=== PATIENT | female | born 1975 | race African-American/Black ===

== ENCOUNTER 2020-07-12 09:17 | Emergency (ER) | payer OTHER, SELFPAY ==
--- OUTSIDE RECORDS SUMMARY | 2020-07-12 09:20 | XMS REPORT | Continuity of Care Document ---
:1975 Author Organization [facility] t Address [address] [place] [address] Care Team Providers Name Role Phone Radiology Attending Clinician Unavailable Doctor Unassigned, Name Attending Clinician Unavailable Sanam Chisholm Attending Clinician Chanelle Crane Attending Clinician Problems This patient has no known problems. Allergies, Adverse Reactions, Alerts This patient has no known allergies or adverse reactions. Medications This patient has no known medications. Procedures This patient has no known procedures. Encounters Start End Encounter Admission Attending Care Care Encounter Source Date/Time Date/Time Type Type Clinicians Facility Department ID 2020-02-24 2020-02-24 [facility] Radiology [facility] [id number] 10:45:00 23:59:00 Encounter [place] [id number] [place] [id number] [place] [id number] 2020-02-24 2020-02-24 Orders Doctor SCOTT [id number] 00:00:00 00:00:00 Only [place]assigned, [place] [id number] [facility] [place] [id number] 2020-01-31 2020-01-31 Emergency [facility] [id number] 18:21:40 21:20:00 Rena Cox [id number] [place] [id number] [place] [id number] 2019-07-16 2019-07-16 Emergency Johnny Moreno [facility] [id number]. [id number] 15:51:43 16:44:00 Johnny Moreno [place] [id number] [place] [id number] [place] [id number] Results This patient has no known results.
[2020-07-12] MEDS ORDERED: KETOROLAC 30 MG/ML INJ ONE (10:30)
--- NOTE | 2020-07-12 11:41 | RAD REPORT ---
EXAM DESCRIPTION: RAD - C Spine Ap/Lat - 07/12/2020 11:13 am CLINICAL HISTORY: PAIN COMPARISON: No comparisons FINDINGS: Cervical bodies are normal in height and alignment.No fracture or acute bony process seen. Large posterior osteophytes are present at C4-5, C5-6 and C6-7. No prevertebral soft tissue thickening or other suspicious soft tissue finding. IMPRESSION: Moderate lower cervical degenerative changes.
--- NOTE | 2020-07-12 11:45 | EDPHYS ---
Physician Documentation [facility] Name: Bernadette Garcia Age: 44 yrs Sex: Female : 1975 Arrival Date: 07/12/2020 Time: 09:21 Bed 6 Private MD: ED Physician Pj Paige HPI: 07/12 09:50 This 44 yrs old Black Female presents to ER via Wheelchair with complaints of Back cp Pain, Neck Problem, Arm Pain. 09:50 The patient or guardian complains of pain, that is acute. The symptoms are located on cp the back and left side of neck. Onset: The symptoms/episode began/occurred 2 week(s) ago. Context: The neck injury/problem resulted from from unknown cause. 09:50 The pain radiates to the left arm. Associated signs and symptoms: Pertinent positives: cp weakness, of the left arm, Pertinent negatives: headache, numbness, tingling. 09:53 The patient presents with pain that is chronic, with no known mechanism of injury. The cp symptoms are located in the low back. Onset: The symptoms/episode began/occurred years ago. The pain radiates to the right leg and left leg. Associated signs and symptoms: Pertinent negatives: abdominal pain, constipation, fever, incontinence, numbness, urinary retention. Historical: - Allergies: 09:30 Codeine (Vomiting); hb - PMHx: 09:30 Diabetes - NIDDM; Hypertension; hb - Immunization history:: Adult Immunizations up to date. - Social history:: Smoking status: Patient denies any tobacco usage or history of. ROS: 09:55 Neck: Positive for pain with movement, pain at rest, Negative for injury or acute cp deformity. 09:55 Cardiovascular: Negative for chest pain, palpitations. 09:55 Respiratory: Negative for cough, shortness of breath, wheezing. cp 09:55 Abdomen/GI: Negative for abdominal pain, nausea, vomiting, and diarrhea. 09:55 MS/extremity: Positive for pain, of the left arm, Negative for decreased range of motion, paresthesias. 09:55 Back: Positive for pain at rest, pain with movement, of the low back. cp 09:55 Neuro: Positive for weakness, of the left arm, Negative for altered mental status, cp numbness, tingling. 09:55 Skin: Negative for rash. cp 09:55 All other systems are negative. Exam: 10:10 Head/Face: Normocephalic, atraumatic. cp 10:10 Constitutional: The patient appears in no acute distress, alert, awake, non-diaphoretic, non-toxic, well developed, well nourished, obese. 10:10 Eyes: Periorbital structures: appear normal, Conjunctiva: normal, no exudate, no injection, Sclera: no appreciated abnormality, Lids and lashes: appear normal, bilaterally. 10:10 ENT: External ear(s): are unremarkable, Nose: is normal, Posterior pharynx: Airway: no evidence of obstruction, patent. 10:10 Neck: External neck: swelling, is not appreciated, tenderness, that is moderate, of the left mid cervical area and left trapezius, C-spine: vertebral tenderness, is not appreciated, crepitus, is not appreciated, ROM/movement: pain, that is mild, with any movement, limited range of motion, is not appreciated. 10:10 Chest/axilla: Inspection: normal, Palpation: is normal, no crepitus, no tenderness. 10:10 Respiratory: the patient does not display signs of respiratory distress, Respirations: normal, no use of accessory muscles, no retractions, labored breathing, is not present, Breath sounds: are clear throughout. 10:10 Abdomen/GI: Exam negative for discomfort, distension, Inspection: abdomen appears normal. 10:10 Back: pain, that is mild, of the lumbar area, ROM is painful, with all movement. 10:10 Neuro: Orientation: to person, place \T\ time. Mentation: is normal, Motor: moves all fours, strength is normal, Sensation: no obvious gross deficits. Vital Signs: 09:27 BP 154 / 104; Pulse 106; Resp 16; Temp 98.2(O); Pulse Ox 100% on R/A; Weight 127.01 kg; hb Height 5 ft. 6 in. (167.64 cm); Pain 10/10; 11:43 BP 142 / 97; Pulse 89; Resp 18; Pulse Ox 100% on R/A; ph 09:27 Body Mass Index 45.19 (127.01 kg, 167.64 cm) hb MDM: 09:44 Patient medically screened. cp 10:00 Differential diagnosis: Cervical Disc Herniation Cervical Raiculopathy chronic back cp pain, ruptured disc, cervical strain, Degenerative Disc Disease. 11:29 ED course: no report generated after inquiry on [employer] prescription monitor website. cp 11:44 Data reviewed: vital signs, nurses notes, radiologic studies, plain films. cp 11:44 Counseling: I had a detailed discussion with the patient and/or guardian regarding: the cp historical points, exam findings, and any diagnostic results supporting the discharge/admit diagnosis, radiology results, the need for outpatient follow up, a family practitioner, to return to the emergency department if symptoms worsen or persist or if there are any questions or concerns that arise at home. Response to treatment: the patient's symptoms have mildly improved after treatment, and as a result, I will discharge patient. 07/12 09:49 Order name: XRAY C Spine Ap/lat; Complete Time: 11:43 cp Administered Medications: 10:26 Drug: TORadol 30 mg Route: IM; Site: left deltoid; ph 11:43 Follow up: Response: No adverse reaction ph Disposition: 12:05 Chart complete. cp 13:55 Co-signature as Attending Physician, Pj Paige MD I agree with the assessment and kdr plan of care. Disposition: 07/12/20 11:44 Discharged to Home. Impression: Strain of muscle, fascia and tendon at neck level, Low back pain - chronic. - Condition is Stable. - Discharge Instructions: Back Pain, Adult, Muscle Strain, Neck Exercises, Back Exercises. - Prescriptions for Cyclobenzaprine 10 mg Oral Tablet - take 1 tablet by ORAL route every 8 hours As needed; 30 tablet. Tramadol 50 mg Oral Tablet - take 1 tablet by ORAL route every 8 hours as needed; 20 tablet. Medrol (Raimundo) 4 mg Oral Tablets, Dose Pack - take 1 tablet by ORAL route as directed - follow package instructions; 1 packet. - Medication Reconciliation Form, Thank You Letter, Antibiotic Education, Prescription Opioid Use form. - Follow up: Private Physician; When: 2 - 3 days; Reason: Recheck today's complaints. - Problem is new. - Symptoms have improved. Signatures: Dispatcher [employer] EDMS Pj Paige MD MD [facility] Monse Simmons RN RN ph Clarence Umanzor PA PA cp Glendy King RN RN Corrections: (The following items were deleted from the chart) 11:59 11:44 07/12/2020 11:44 Discharged to Home. Impression: Strain of muscle, fascia and ph tendon at neck level; Low back pain - chronic. Condition is Stable. Forms are Medication Reconciliation Form, Thank You Letter, Antibiotic Education, Prescription Opioid Use. Follow up: Private Physician; When: 2 - 3 days; Reason: Recheck today's complaints. Problem is new. Symptoms have improved. cp
--- NOTE | 2020-07-12 11:45 | ER ---
Nurse's Notes [facility] Name: Bernadette Garcia Age: 44 yrs Sex: Female : 1975 Arrival Date: 07/12/2020 Time: 09:21 Bed 6 Private MD: Diagnosis: Strain of muscle, fascia and tendon at neck level;Low back pain-chronic Presentation: 07/12 09:27 Chief complaint: Left sided neck pain that radiates to left arm x 2 weeks, low back hb pain that radiates to bilateral legs x 2-3 days. Pt stated "I have an implanted nerve stimulator, but I don't think it is working.". Coronavirus screen: At this time, the client does not indicate any symptoms associated with coronavirus-19. Ebola Screen: No symptoms or risks identified at this time. Initial Sepsis Screen: Does the patient meet any 2 criteria? No. Patient's initial sepsis screen is negative. Does the patient have a suspected source of infection? No. Patient's initial sepsis screen is negative. Risk Assessment: Do you want to hurt yourself or someone else? Patient reports no desire to harm self or others. Onset of symptoms was June 2020. 09:27 Method Of Arrival: Wheelchair hb 09:27 Acuity: ODALIS 3 hb Historical: - Allergies: 09:30 Codeine (Vomiting); hb - PMHx: 09:30 Diabetes - NIDDM; Hypertension; hb - Immunization history:: Adult Immunizations up to date. - Social history:: Smoking status: Patient denies any tobacco usage or history of. Screenin:32 Abuse screen: Denies injuries from another. Abuse screen: Denies threats or abuse. ph Nutritional screening: No deficits noted. Tuberculosis screening: No symptoms or risk factors identified. Fall Risk None identified. Assessment: 09:33 General: Appears in no apparent distress. comfortable, well groomed, Behavior is calm, ph cooperative, appropriate for age, Denies fever, feeling ill. Pain: Complains of pain in left posterior aspect of neck Pain radiates to left arm Quality of pain is described as shooting, throbbing, Pain began 2 weeks ago. Pain: Complains of pain in lumbar area Pain radiates to right leg and left leg Pain began years ago. Neuro: Level of Consciousness is awake, alert, obeys commands, Oriented to person, place, time, situation, Reports paresthesias in left arm Denies weakness blurred vision dizziness, headache. Cardiovascular: Denies chest pain, diaphoresis, fatigue, lightheadedness, nausea, palpitations, shortness of breath, Capillary refill < 3 seconds in bilateral fingers Patient's skin is warm and dry. Respiratory: Airway is patent Respiratory effort is even, unlabored, Respiratory pattern is regular, symmetrical, Denies shortness of breath. GI: No signs and/or symptoms were reported involving the gastrointestinal system. Patient currently denies nausea, vomiting. Derm: Skin is intact, is healthy with good turgor, Skin is pink, warm \\T\\ dry. Musculoskeletal: Circulation, motion, and sensation intact. Range of motion: intact in all extremities. 11:02 Reassessment: Patient appears in no apparent distress at this time. Patient and/or ph family updated on plan of care and expected duration. Pain level reassessed. Patient is alert, oriented x 3, equal unlabored respirations, skin warm/dry/pink. Vital Signs: 09:27 BP 154 / 104; Pulse 106; Resp 16; Temp 98.2(O); Pulse Ox 100% on R/A; Weight 127.01 kg; hb Height 5 ft. 6 in. (167.64 cm); Pain 10/10; 11:43 BP 142 / 97; Pulse 89; Resp 18; Pulse Ox 100% on R/A; ph 09:27 Body Mass Index 45.19 (127.01 kg, 167.64 cm) hb ED Course: 09:21 Patient arrived in ED. mr 09:29 Triage completed. hb 09:30 Arm band placed on. hb 09:32 Monse Simmons, RN is Primary Nurse. ph 09:33 Patient has correct armband on for positive identification. Bed in low position. Call ph light in reach. Side rails up X 1. Pulse ox on. NIBP on. Door closed. Noise minimized. Warm blanket given. 09:42 Clarence Umanzor PA is PHCP. cp 09:42 Pj Paige MD is Attending Physician. cp 11:09 XRAY C Spine Ap/lat In Process Unspecified. EDMS 11:58 No provider procedures requiring assistance completed. Patient did not have IV access ph during this emergency room visit. Administered Medications: 10:26 Drug: TORadol 30 mg Route: IM; Site: left deltoid; ph 11:43 Follow up: Response: No adverse reaction ph Outcome: 11:44 Discharge ordered by . cp 11:58 Discharged to home via wheelchair. ph 11:58 Condition: good 11:58 Discharge instructions given to patient, Instructed on discharge instructions, follow up and referral plans. medication usage, Demonstrated understanding of instructions, follow-up care, medications, Prescriptions given X 3. 11:59 Patient left the ED. ph Signatures: Dispatcher [employer] Karissa Hall Patricia, RN RN ph Clarence Umanzor, Glendy Mason cp, RN RN hb
[2020-07-16 23:28] VITALS: TEMP 98.2; O2SAT 100
[2020-07-16 23:29] VITALS: BP 142/97
== END 2020-07-12 11:59 | disposition home or self-care (01) ==
LOC: ER 09:17
DX: S16.1XXA Strain of muscle, fascia and tendon at neck level, initial encounter (principal); M54.5 Low back pain; I10 Essential (primary) hypertension; Z88.5 Allergy status to narcotic agent
CPT/HCPCS: 72040; 96372; 99284

== ENCOUNTER 2023-03-26 05:29 | Observation (INO) | payer OTHER ==
[2023-03-22 10:23] LABS: Absolute Lymphocytes (CBC) 2.6 K/uL (0.7-4.9); Hematocrit 40.8 % (36.0-45.0); Lymphocytes % 23.1 % (15.3-44.8); MCV 87.4 fL (80-100); MPV 7.9 fL (7.6-11.3); RBC Red Blood Cell Count 4.67 M/uL (3.86-4.86)
[2023-03-22 10:36] LABS: Potassium 3.8 mEq/L (3.5-5.1)
[2023-03-26] MEDS ORDERED: NA CHLORIDE 0.9% 1,000 ML ONE ×2 (06:01→08:29)
[2023-03-26] MEDS ORDERED: CEFAZOLIN SODIUM 2 GM/VIAL ONE (06:01)
[2023-03-26] MEDS ORDERED: DEPO-MEDROL 40 MG/ML IM ONE (06:28)
[2023-03-26] MEDS ORDERED: VANCOMYCIN 1 GM/VIAL ONE (06:28)
[2023-03-26] MEDS ORDERED: THROMBIN 5000 UNITS/VIAL TOP ONE (06:28)
[2023-03-26] MEDS ORDERED: BUPIVACAINE 0.25% PF 30 ML VIAL ONE (06:28)
[2023-03-26] MEDS ORDERED: SUCCINYLCHOLINE 20 MG/ML (10 ML) IV ONE (06:31)
[2023-03-26] MEDS ORDERED: propofoL 200 MG/20 ML VIAL IV ONE ×9 (06:46→09:45)
[2023-03-26] MEDS ORDERED: MIDAZOLAM HCL 2 MG/2 ML INJ ONE (06:46)
[2023-03-26] MEDS ORDERED: ROCURONIUM 50 MG/5 ML VIAL IV ONE (06:46)
[2023-03-26] MEDS ORDERED: LIDOCAINE 2% MPF 5 ML VIAL ONE (06:46)
[2023-03-26] MEDS ORDERED: FENTANYL CITR 250 MCG/5 ML ONE (06:46)
[2023-03-26] MEDS ORDERED: dexAMETHasone 10 MG/ML VIAL ONE (06:46)
[2023-03-26] MEDS ORDERED: ONDANSETRON 4 MG/2 ML VIAL ONE (06:53)
[2023-03-26] MEDS ORDERED: Mastisol Adhesive Liq ONE (07:45)
[2023-03-26] MEDS ORDERED: Phenylephrine HCl 10 MG/ML 1 ML VIAL ONE (08:11)
[2023-03-26] MEDS ORDERED: FENTANYL CITR 100 MCG/2 ML ONE (08:30)
[2023-03-26] MEDS: HYDROMORPHONE HCL 1 MG/ML INJ ONE ×4 (11:05→11:46)
[2023-03-26] MEDS ORDERED: CYCLOBENZAPRINE 10 MG TAB PO PRN ×2 (11:20→13:24)
[2023-03-26] MEDS ORDERED: HYDROCODONE/APAP 10/325 TAB PO PRN ×2 (11:21)
[2023-03-26] MEDS ORDERED: MORPHINE 2 MG/ML SYR IV PRN (11:22)
[2023-03-26] MEDS: NA CHLORIDE 0.9% 1,000 ML IV SCH ×2 (12:00→22:00)
--- NOTE | 2023-03-26 12:15 | RAD REPORT ---
EXAM DESCRIPTION: RAD - Fluoroscopy <1 Hour - 03/26/2023 12:09 pm CLINICAL HISTORY: CSPINE DISCECTOMY, C4-C5, C5-C6, C6-C7 COMPARISON: No comparisons FINDINGS: Fluoroscopy time: 0.1 minutes.
--- OUTSIDE RECORDS SUMMARY | 2023-03-26 12:15 | XMS REPORT | Continuity of Care Document ---
:1975 Author Organization [facility] t Address [address] [place] [address] [place] [id number] Care Team Providers Name Role Phone Jarek Tila Hill Primary Care Physician AVI MASON Attending Clinician Unavailable KENNEY PEDRO Attending Clinician Unavailable Avi Mason MD Attending Clinician Doctor Unassigned, [place] Attending Clinician Unavailable Pob, [facility] Main Attending Clinician Unavailable RADIOLOGY Attending Clinician Unavailable Radiology Attending Clinician Unavailable RONALD MARSH Attending Clinician Unavailable KENDRA URIAS Attending Clinician Unavailable Kendra Denise Attending Clinician PATRICIA SULTANA Attending Clinician Unavailable Patricia Sultana DO Attending Clinician Clemente Mathur Attending Clinician CLEMENTE MATHUR Attending Clinician Unavailable Rena Chisholm Attending Clinician RENA SNYDER Attending Clinician Unavailable Johnny Crane Attending Clinician AVI MASON Admitting Clinician Unavailable Avi Mason MD Admitting Clinician KIM ESPITIA II Admitting Clinician Unavailable KENDRA URIAS Admitting Clinician Unavailable TILA DELGADO Admitting Clinician Unavailable RENA SNYDER Admitting Clinician Unavailable Payers Payer Name Policy Type Policy Number Effective Date Expiration Date Abisai RODRIGUEZ PLS [id number] 2022 HMO 00:00:00 [facility] [id number] 2021 PLUS 00:00:00 FORMERLY [facility] 3D [employer] [id number] 2020spring 00:00:00 MED[place] [id number] 2021 00:00:00 MEDICAID SSI PENDING 2020 PENDING 00:00:00 Problems Condition Condition Condition Status Onset Resolution Last Treating Co mments Source Name Details Category Date Date Treatment Clinician Date MRI MRI Diagnosis Active 2021-06-15 Mem oria CERVICAL CERVICAL 7-20 04:40:00 l SPINE WO SPINE WO 00:00: Toño flores CONTRAST CONTRAST 00 Active 06/07/2021 [facility] M54.12 / M54.12 / Diagnosis Active 2021-06-13 Memoria SPINE CORD SPINE CORD 7-20 16:30:00 l STIMULATOR STIMULATOR 00:00: He rmann IMPLANT IMPLANT 00 Active 06/07/2021 [facility] Chest pain Chest pain Disease Active U nivers 6-20 ity of 00:00: [place] 00 Medical Branch Morbid Morbid Disease Active Univers obesity obesity 6-20 [place] of with body [place] body [place] mass index mass index 00 Me dical of of Branch 40.0-49.9 40.0-49.9 Type 2 Type 2 Disease Active Univers diabetes diabetes 6-20 ity of mellitus mellitus 00:00: [place] without without 00 Medical complicati complicati Br anch on on Essential Essential Disease Active Uni vers hypertensi hypertensi 6-20 it y of on on 00:00: [place] 00 Medical Branch Morbid Morbid Disease Active Univers obesity obesity 6-20 [place]y of with body with body 00:[place] mass index mass index 00 Me dical of of Branch 40.0-49.9 40.0-49.9 Allergies, Adverse Reactions, Alerts Allergy Allergy Status Severity Reaction(s) Onset Inactive Treating Comm ents Source Name Type Date Date Clinician Codeine Propensi Active Hives 2011-11 Univers Hcl ty to 0-05 ity of adverse 00:00: [place] reaction 00 Medical s Branch CODEINE DRUG Active Hives 2011-11 Univers HCL INGREDI 0-05 ity of 00:00: [place] 00 Medical Branch Social History Social Habit Start Date Stop Date Quantity Comments Source Alcohol intake 2023-01-29 2023-01-29 Current University 00:00:00 00:00:00 non-drinker of [facility] alcohol [place] (finding) Exposure to 2023-01-12 2023-01-22 Not sure [facility] SARS-CoV-2 00:00:00 11:00:00 [facility] (event) [place] Sex Assigned At [birth year] [facility] 00:00:00 00:00:00 Smoking Status Start Date Stop Date Source Tobacco smoking consumption [facility] ealth unknown Never smoked tobacco [facility] Medications Ordered Filled Start Stop Current Ordering Indication Dosage Frequency Signature Comments Components Source Medication Medication Date Date Medication? Clinician (SIG) Name Name NaCl 23.4% Yes PRN, Univers HYPERTONIC 01-29 Starting ity o f injection 13:31: on Mon [place] 00 01/29/23 at [facility] 08, Branch Until Discontinu ed, STAT, Intra-op triamcinolo 2022- No PRN, Unive rs ne 01-29 Starting ity of acetonide 13:31: 13:37 on [facility] (KENALOG) 00 :31 01/29/23 at [facility] injection 08, Branch Until Sun01/29/23 at 0837, Routine, Intra-op NaCl 23.4% 2022- No PRN, Univer s HYPERTONIC 01-29 Starting ity of injection 13:31: 16:45 on [facility] 00 :36 01/29/23 at [facility] 0831, Branch Until Sun01/29/23 at 1145, STAT, Intra-op bupivacaine Yes PRN, Univer s -epinephrin 01-29 Starting ity of e-pf 13:29: on Sun [place] (SENSORCAIN 00 01/29/23 at [place] 0829, Branch W/EPINEPHRI Until NE) 0.5 Discontinu %-1:200,000 ed, injection Routine, Intra-op iohexoL 0 Yes PRN, Univers (OMNIPAQUE 13 Starting ity o f 300-50 mL)) 13:29: [place] 00 01/29/23 at [facility] 0829, Branch Until Discontinu ed, Routine, Intra-op lidocaine Yes PRN, Univers 1% 01-29 Starting ity of (XYLOCAINE) 13:29: [place] 10 mg/mL (1 00 01/29/23 at [place] d[place] %) 828, Branch injection Until Discontinu ed, Routine, Intra-op triamcinolo Yes PRN, Univer s ne 01-29 Starting ity of acetonide 13:29: on [facility] (KENALOG) 00 01/29/23 at [facility] injection 0829, Branch Until Discontinu ed, Routine, Intra-op bupivacaine 2022- No PRN, Unive rs -epinephrin 01-29 Starting ity of e-pf 13:29: 16:45 on [facility] (SENSORCAIN 00 :36 01/29/23 at [place] 0829, Branch W/EPINEPHRI Until [facility]) 0.5 01/29/23 at %-1:200,000 1145, injection Routine, Intra-op iohexoL 2022- No PRN, Univers (OMNIPAQUE 01-29 Starting ity of 300-50 mL)) 13:29: 16:45 on Sun [place] injection 00 :36 01/29/23 at [facility] 0829, Branch Until Sun01/29/23 at 1145, Routine, Intra-op lidocaine 2022- No PRN, Univers 1% 01-29 Starting ity of (XYLOCAINE) 13:29: 16:45 on [facility] [place] 10 mg/mL (1 00 :36 01/29/23 at [place] %) 08, Branch injection Until Sun01/29/23 at 1145, Routine, Intra-op triamcinolo 2022- No PRN, Unive rs ne 01-29 Starting ity of acetonide 13:29: 16:45 on [facility] (KENALOG) 00 :36 01/29/23 at [facility] injection 0829, Branch Until Sun01/29/23 at 1145, Routine, Intra-op lactated 2023-0 2023- No 1000mL at 42 Unive rs ringers IV 3-13 03-13 mL/hr, ity of infusion 12:15: 12:08 1,000 mL, [place] 1,000 mL 00 :00 IV Medical Infusion, Branch ONCE, 1 dose, On Sun01/29/23 at 0715, Routine, DSU Pre-op lactated 3-0 202- No 1000mL at 42 Unive rs ringers IV 3-13 03-13 mL/hr, ity of infusion 12:15: 12:08 1,000 mL, [place] 1,000 mL 00 :00 IV Medical Infusion, Branch ONCE, 1 dose, On Sun01/29/23 at 0715, Routine, DSU Pre-op LISINOPRIL 2023-0 Yes 40mg Take 40 mg U nivers ORAL 3-13 by mouth ity of 09:45: daily. Pt [place] [address] states her Medical Lisinopril Branch is bumped up to 40 mg instead of 20 mg per MD, per pt. amLODIPine 3-0 Yes 5mg Take 1 Unive rs 5 mg tablet 3-13 tablet by ity of 09:45: mouth in [place] [address] the Medical morning. Branch LISINOPRIL 2022-0 Yes 40mg Take 40 mg U nivers ORAL 3-13 by mouth ity of 06:55: daily. Pt [place] [address] states her Medical Lisinopril Branch is bumped up to 40 mg instead of 20 mg per MD, per pt. amLODIPine 3-0 Yes 5mg Take 1 Unive rs 5 mg tablet 3-13 tablet by ity of 06:55: mouth in [place] [address] the Medical morning. Branch triamcinolo 2022-0 2022- No PRN, Unive rs ne 01-08 Starting ity of acetonide 14:06: 16:41 on [facility] [place] (KENALOG) 00 :09 01/08/23 at [facility] injection 0806, Branch Until Sun01/08/23 at 1041, Routine, Intra-op lidocaine 2022-0 2022- No PRN, Univers 1% 01-08 Starting ity of (XYLOCAINE) 14:06: 16:41 on Mon [place] 10 mg/mL (1 00 :09 01/08/23 at [place] %) 0806, Branch injection Until Sun01/08/23 at 1041, Routine, Intra-op bupivacaine 2022-0 2022- No PRN, Unive rs (preserv -08 01-20 Starting ity of free) 14:06: 16:41 on Mon [place] (SENSORCAIN 00 :09 01/08/23 at [place] dical E MPF) 0.25 0806, Branch % (2.5 Until Mon mg/mL) 01/08/23 at injection 1041, Routine, Intra-op iohexoL 2022-0 2022- No PRN, Univers (OMNIPAQUE 01-08-20 Starting ity of 300-50 mL)) 14:05: 16:41 on Mon [place] injection 00 :09 01/08/23 at [facility] 0805, Branch Until Sun01/08/23 at 1041, Routine, Intra-op lactated 2022-0 2022- No 1000mL at 42 [facility] rs ringers IV 2-20 02-20 mL/hr, ity of infusion 13:45: 13:55 1,000 mL, [place] 1,000 mL 00 :00 IV Medical Infusion, Branch ONCE, 1 dose, On Sun01/08/23 at 0745, Routine, DSU Pre-op lactated 2022-0 2022- No 1000mL at 42 [facility] rs ringers IV 2-20 02-20 mL/hr, ity of infusion 13:45: 13:55 1,000 mL, [place] 1,000 mL 00 :00 IV Medical Infusion, Branch ONCE, 1 dose, On Sun01/08/23 at 0745, Routine, DSU Pre-op LISINOPRIL 2022-0 Yes 40mg Take 40 mg U nivers ORAL 2-20 by mouth ity of 08:41: daily. Pt [place] 06 states her Medical Lisinopril Branch is bumped up to 40 mg instead of 20 mg per MD, per pt. amLODIPine 2022-0 Yes 5mg Take 5 mg Un farhana 5 mg tablet 2-20 by mouth ity of 08:41: in the [place] morning. Medical Branch LISINOPRIL 2022-0 Yes 40mg Take 40 mg U nivers ORAL 2-20 by mouth ity of 08:41: daily. Pt [place] 06 states her Medical Lisinopril Branch is bumped up to 40 mg instead of 20 mg per MD, per pt. amLODIPine 2023-0 Yes 5mg Take 5 mg Un farhana 5 mg tablet 2-20 by mouth ity of 08:41: in the [place] 06 morning. Medical Branch LISINOPRIL 2023-0 Yes 40mg Take 40 mg U nivers ORAL 2-20 by mouth ity of 08:41: daily. Pt [place] 06 states her Medical Lisinopril Branch is bumped up to 40 mg instead of 20 mg per MD, per pt. amLODIPine 3-0 Yes 5mg Take 5 mg Un farhana 5 mg tablet 2-20 by mouth ity of 08:41: in the [place] 06 morning. Medical Branch amLODIPine 3-0 Yes 5mg Take 5 mg Un farhana 5 mg tablet 2-14 by mouth ity of 12:23: in the [place] 54 morning. Medical Branch CEPHALEXIN 2023-0 2023- No 500mg Take 500 U nivers (KEFLEX 2-14 02-14 mg by ity of ORAL) 12:22: 00:00 mouth [place] 21 :00 daily. Medical Branch metFORMIN 2023-0 2023- No 500mg Take 500 Un farhana 500 mg 2-14 02-14 mg by ity of tablet 12:22: 00:00 mouth 2 [place] 21 :00 (two) Medical times Branch daily with meals. CEPHALEXIN 2023-0 2023- No 500mg Take 500 U nivers (KEFLEX 2-14 02-14 mg by ity of ORAL) 12:22: 00:00 mouth [place] 21 :00 daily. Medical Branch metFORMIN 2023-0 2023- No 500mg Take 500 Un farhana 500 mg 2-14 02-14 mg by ity of tablet 12:22: 00:00 mouth 2 [place] 21 :00 (two) Medical times Branch daily with meals. LISINOPRIL 2023-0 Yes 40mg Take 40 mg U nivers ORAL 2-14 by mouth ity of 12:18: daily. Pt [place] 38 states her Medical Lisinopril Branch is bumped up to 40 mg instead of 20 mg per MD, per pt. traMADoL 50 3-0 Yes 50mg Take 1 Univ ers mg tablet 2-02 tablet by ity o f 00:00: mouth as [place] 00 needed. Medical Branch traMADoL 50 3-0 Yes 50mg Take 1 Univ ers mg tablet 2-02 tablet by ity o f 00:00: mouth as [place] 00 needed. Medical Branch FREESTYLE 3-0 Yes 1{strip 1 Strip as Univers LITE STRIPS 2-01 } needed. ity o f strip 00:00: Medical Branch FREESTYLE 3-0 Yes 1{strip 1 Strip as Univers LITE STRIPS 2-01 } needed. ity o f strip 00:00: Medical Branch meloxicam 3-0 Yes Take by Unive rs 15 mg 1-05 mouth as ity of tablet 00:00: needed. Medical Branch meloxicam 3-0 Yes Take by Unive rs 15 mg 1-05 mouth as ity of tablet 00:00: needed. Medical Branch meloxicam 3-0 Yes Take by Unive rs 15 mg 1-05 mouth as ity of tablet 00:00: needed. Medical Branch meloxicam 3-0 Yes Take by Unive rs 15 mg 1-05 mouth as ity of tablet 00:00: needed. Medical Branch meloxicam 3-0 Yes Take by Unive rs 15 mg 1-05 mouth as ity of tablet 00:00: needed. Medical Branch meloxicam 3-0 Yes Take by Unive rs 15 mg 1-05 mouth as ity of tablet 00:00: needed. Medical Branch MOUNJARO 2021- Yes inject Univers 2.5 mg/0.5 2-28 under the ity of mL PnIj 00:00: skin [place] 00 weekly. Medical Branch MOUNJARO 2021-1 Yes inject Univers 2.5 mg/0.5 2-28 under the ity of mL PnIj 00:00: skin [place] 00 weekly. Medical Branch MOUNJARO 2021-1 Yes inject Univers 2.5 mg/0.5 2-28 under the ity of mL PnIj 00:00: skin [place] 00 weekly. Medical Branch MOUNJARO 2021-1 Yes inject Univers 2.5 mg/0.5 2-28 under the ity of mL PnIj 00:00: skin [place] 00 weekly. Medical Branch MOUNJARO 2021-11 Yes inject Univers 2.5 mg/0.5 2-28 under the ity of mL PnIj 00:00: skin [place] 00 weekly. Medical Branch MOUNRO 2021-11 Yes inject Univers 2.5 mg/0.5 2-28 under the ity of mL PnIj 00:00: skin [place] 00 weekly. Medical Branch diazePAM 2020-11- No 5mg 5 mg, Univers (VALIUM) -09 11- Oral, ity of tablet 5 mg 02:30: 02:39 ONCE, 1 [place] :[place] dose, On Medical [facility] Branch 11/08/21 at 2030, JASMINA ketorolac 2020-11- No 15mg 15 mg, Unive rs (TORADOL) 01-10 Slow IV ity of injection 02:30: 02:39 Push, [place] 15 mg 00 :00 ONCE, 1 Medical dose, On Branch [facility] 11/08/21 at 2030, JASMINA
Fa culty member approving Restricted medication : KENDRA URIAS methocarbam 2020-11 Yes 500mg 500 mg, Un farhana oL - Oral, QID, ity of (ROBAXIN) 02:00: First dose [place] tablet 500 00 on [facility] 11/08/21 Branch at 2000, Until Discontinu ed, Routine diazePAM 5 2020-11- No [id number] 5mg Take 1 Univers mg tablet 01-10- tablet by ity of 00:00: 05:59 mouth at [place] 00 :00 bedtime Medical for 3 Branch days. diazePAM 5 2020-11- No [id number] 5mg Take 1 Univers mg tablet -09 11- tablet by ity of 00:00: 00:00 mouth at [place] 00 :00 bedtime Medical for 3 Branch days. methocarbam 2020-11 Yes [id number] 500mg Take 1 Univers oL 500 mg 2-21 tablet by ity o f tablet 00:00: mouth 4 [place] 00 (four) Medical times Branch daily as needed (muscle pain). methocarbam 2020-11 Yes [id number] 500mg Take 1 Univers oL 500 mg 2-21 tablet by ity o f tablet 00:00: mouth 4 [place] 00 (four) Medical times Branch daily as needed (muscle pain). methocarbam 2020-11- No [id number] 500mg Take 1 Univers oL 500 mg 01-09 tablet by ity of tablet 00:00: 00:00 mouth 4 [place] 00 :00 (four) Medical times Branch daily as needed (muscle pain). methocarbam 2020-11- No [id number] 500mg Take 1 Univers oL 500 mg 01-09 tablet by ity of tablet 00:00: 00:00 mouth 4 [place] 00 :00 (four) Medical times Branch daily as needed (muscle pain). methocarbam 2020-11- No [id number] 500mg Take 1 Univers oL 500 mg 01-09 tablet by ity of tablet 00:00: 00:00 mouth 4 [place] 00 :00 (four) Medical times Branch daily as needed (muscle pain). ibuprofen 2020-11- No 600mg 600 mg, Uni vers (IBU) 01-01 Oral, ity of tablet 600 19:45: 19:03 ONCE, 1 [place] mg 00 :00 dose, On Medical Mon Branch 10/31/21 at 1345, JASMINA dextrometho 2019- No 10mL 10 mL, Uni vers rphan-guaif 01-31 Oral, ity of enesin 02:15: 01:13 ONCE, 1 [place] (ROBITUSSIN 00 :00 dose, Sat Med ical DM) 10-100 01/31/20 at Bra nch mg/5 mL 2115, solution 10 Routine mL bromphenira 0 2020- No [id number] 5mL Take 5 mL Univers mine-pseudo 01-3020 by mouth 3 i ty of ephedrine-D 00:00: 04:59 (three) [place] M (BROMFED 00 :00 times Medical DM) 2-30-10 daily as Bran ch mg/5 mL needed for syrup Congestion /Allergies or Cough for up to 5 days. cyclobenzap Yes [id number] 10mg Take 1 Univers rine 10 mg 8-28 tablet by ity of tablet 00:00: mouth 3 [place] 00 (three) Medical times Branch daily. ibuprofen Yes [id number] 600mg Take 1 Univers 600 mg 8-28 tablet by ity of tablet 00:00: mouth [place] 00 every 6 Medical (six) Branch hours as needed for Pain (scale 4-6). cyclobenzap 2019-0 Yes [id number] 10mg Take 1 Univers rine 10 mg 8-28 tablet by ity of tablet 00:00: mouth 3 [place] 00 (three) Medical times Branch daily. ibuprofen 2019-0 Yes [id number] 600mg Take 1 Univers 600 mg 8-28 tablet by ity of tablet 00:00: mouth [place] 00 every 6 Medical (six) Branch hours as needed for Pain (scale 4-6). cyclobenzap 2019-0 Yes [id number] 10mg Take 1 Univers rine 10 mg 8-28 tablet by ity of tablet 00:00: mouth 3 [place] 00 (three) Medical times Branch daily. ibuprofen 2019-0 Yes [id number] 600mg Take 1 Univers 600 mg 8-28 tablet by ity of tablet 00:00: mouth [place] 00 every 6 Medical (six) Branch hours as needed for Pain (scale 4-6). cyclobenzap 2019-0 Yes [id number] 10mg Take 1 Univers rine 10 mg 8-28 tablet by ity of tablet 00:00: mouth 3 [place] 00 (three) Medical times Branch daily. ibuprofen 2019-0 Yes [id number] 600mg Take 1 Univers 600 mg 8-28 tablet by ity of tablet 00:00: mouth [place] 00 every 6 Medical (six) Branch hours as needed for Pain (scale 4-6). cyclobenzap 2019-0 Yes [id number] 10mg Take 1 Univers rine 10 mg 8-28 tablet by ity of tablet 00:00: mouth 3 [place] 00 (three) Medical times Branch daily. cyclobenzap 2019-0 Yes [id number] 10mg Take 1 Univers rine 10 mg 8-28 tablet by ity of tablet 00:00: mouth 3 [place] 00 (three) Medical times Branch daily. cyclobenzap 2019-0 Yes [id number] 10mg Take 1 Univers rine 10 mg 8-28 tablet by ity of tablet 00:00: mouth 3 [place] 00 (three) Medical times Branch daily. cyclobenzap 2019-0 Yes [id number] 10mg Take 1 Univers rine 10 mg 8-28 tablet by ity of tablet 00:00: mouth 3 [place] 00 (three) Medical times Branch daily. cyclobenzap 2019-0 Yes [id number] 10mg Take 1 Univers rine 10 mg 8-28 tablet by ity of tablet 00:00: mouth 3 [place] 00 (three) Medical times Branch daily. cyclobenzap 2019-0 Yes [id number] 10mg Take 1 Univers rine 10 mg 8-28 tablet by ity of tablet 00:00: mouth 3 [place] 00 (three) Medical times Branch daily. cyclobenzap 2019-0 Yes [id number] 10mg Take 1 Univers rine 10 mg 8-28 tablet by ity of tablet 00:00: mouth 3 [place] 00 (three) Medical times Branch daily. ibuprofen 2019-0 Yes [id number] 600mg Take 1 Univers 600 mg 8-28 tablet by ity of tablet 00:00: mouth [place] 00 every 6 Medical (six) Branch hours as needed for Pain (scale 4-6). cyclobenzap 2019-0 Yes [id number] 10mg Take 1 Univers rine 10 mg 8-28 tablet by ity of tablet 00:00: mouth 3 [place] 00 (three) Medical times Branch daily. ibuprofen 2019-0 Yes [id number] 600mg Take 1 Univers 600 mg 8-28 tablet by ity of tablet 00:00: mouth [place] 00 every 6 Medical (six) Branch hours as needed for Pain (scale 4-6). cyclobenzap 2018-0 Yes [id number] 10mg Take 1 Univers rine 10 mg 8-28 tablet by ity of tablet 00:00: mouth 3 [place] 00 (three) Medical times Branch daily. ibuprofen 2019-0 Yes [id number] 600mg Take 1 Univers 600 mg 8-28 tablet by ity of tablet 00:00: mouth [place] 00 every 6 Medical (six) Branch hours as needed for Pain (scale 4-6). cyclobenzap 2019-0 Yes [id number] 10mg Take 1 Univers rine 10 mg 8-28 tablet by ity of tablet 00:00: mouth 3 [place] 00 (three) Medical times Branch daily. ibuprofen 2019-0 Yes [id number] 600mg Take 1 Univers 600 mg 8-28 tablet by ity of tablet 00:00: mouth [place] 00 every 6 Medical (six) Branch hours as needed for Pain (scale 4-6). ibuprofen 2018-0 3- No [id number] 600mg Take 1 Univers 600 mg 8-28 02-14 tablet by ity of tablet 00:00: 00:00 mouth [place] 00 :00 every 6 Medical (six) Branch hours as needed for Pain (scale 4-6). ibuprofen 2018-0 3- No [id number] 600mg Take 1 Univers 600 mg 07-16 02-14 tablet by ity of tablet 00:00: 00:00 mouth [place] 00 :00 every 6 Medical (six) Branch hours as needed for Pain (scale 4-6). CEPHALEXIN 2019-0 Yes 500mg Take 500 Un farhana (KEFLEX 2-04 mg by ity of ORAL) 22:00: mouth [place] 15 daily. Medical Branch CEPHALEXIN 2019-0 Yes 500mg Take 500 Un farhana (KEFLEX 2-04 mg by ity of ORAL) 22:00: mouth [place] 15 daily. Medical Branch CEPHALEXIN 2019-0 Yes 500mg Take 500 Un farhana (KEFLEX 2-04 mg by ity of ORAL) 22:00: mouth [place] 15 daily. Medical Branch CEPHALEXIN 2019-0 Yes 500mg Take 500 Un farhana (KEFLEX 2-04 mg by ity of ORAL) 22:00: mouth [place] 15 daily. Medical Branch CEPHALEXIN 2019-0 Yes 500mg Take 500 Un farhana (KEFLEX 2-04 mg by ity of ORAL) 16:00: mouth [place] 15 daily. Medical Branch CEPHALEXIN 2019-0 Yes 500mg Take 500 Un farhana (KEFLEX 2-04 mg by ity of ORAL) 16:00: mouth [place] 15 daily. Medical Branch CEPHALEXIN 2019-0 Yes 500mg Take 500 Un farhana (KEFLEX 2-04 mg by ity of ORAL) 16:00: mouth [place] 15 daily. Medical Branch CEPHALEXIN 2019-0 Yes 500mg Take 500 Un farhana (KEFLEX 2-04 mg by ity of ORAL) 16:00: mouth [place] 15 daily. Medical Branch LISINOPRIL 2017-0 Yes 20mg Take 20 mg U nivers ORAL 6-20 by mouth ity of 22:28: daily. [place] 13 Medical Branch metFORMIN 2018-0 Yes 500mg Take 500 Uni vers 500 mg 6-20 mg by ity of tablet 22:28: mouth 2 [place] 13 (two) Medical times Branch daily with meals. LISINOPRIL 2018-0 Yes 20mg Take 20 mg U nivers ORAL 6-20 by mouth ity of 22:28: daily. [place] 13 Medical Branch metFORMIN 2018-0 Yes 500mg Take 500 Uni vers 500 mg 6-20 mg by ity of tablet 22:28: mouth 2 [place] [address] ([facility]) [facility] daily with meals. LISINOPRIL 2018-0 Yes 20mg Take 20 mg U nivers ORAL 6-20 by mouth ity of 22:28: daily. [address] metFORMIN 2018-0 Yes 500mg Take 500 Uni vers 500 mg 6-20 mg by ity of tablet 22:28: mouth 2 [place] [address] ([facility] daily with meals. LISINOPRIL 2018-0 Yes 20mg Take 20 mg U nivers ORAL 6-20 by mouth ity of 22:28: daily. [address] metFORMIN 2018-0 Yes 500mg Take 500 Uni vers 500 mg 6-20 mg by ity of tablet 22:28: mouth 2 [place] [address] ([facility]) [facility] daily with meals. LISINOPRIL 2018-0 Yes 20mg Take 20 mg U nivers ORAL 6-20 by mouth ity of 17:28: daily. [address] metFORMIN 2018-0 Yes 500mg Take 500 Uni vers 500 mg 6-20 mg by ity of tablet 17:28: mouth 2 [place] [address] ([facility] daily with meals. LISINOPRIL 2018-0 Yes 20mg Take 20 mg U nivers ORAL 6-20 by mouth ity of 17:28: daily. [address] metFORMIN 2018-0 Yes 500mg Take 500 Uni vers 500 mg 6-20 mg by ity of tablet 17:28: mouth 2 [place] [address] ([facility] daily with meals. LISINOPRIL 2018-0 Yes 20mg Take 20 mg U nivers ORAL 6-20 by mouth ity of 17:28: daily. [address] metFORMIN 2018-0 Yes 500mg Take 500 Uni vers 500 mg 6-20 mg by ity of tablet 17:28: mouth 2 [place] [address] ([facility] daily with meals. LISINOPRIL 2018-0 Yes 20mg Take 20 mg U nivers ORAL 6-20 by mouth ity of 17:28: daily. [address] metFORMIN 2018-0 Yes 500mg Take 500 Uni vers 500 mg 6-20 mg by ity of tablet 17:28: mouth 2 [place] [address] ([facility] daily with meals. Vital Signs Vital Name Observation Time Observation Value Comments Source Systolic blood 2023-01-29 132 mm[Hg] University of pressure 14:05:00 [facility] Diastolic blood 2023-01-29 88 mm[Hg] University o f pressure 14:05:00 [facility] Heart rate 2023-01-29 76 /min University of 14:05:00 [facility] Branch Respiratory rate 2023-01-29 19 /min University of 14:05:00 [facility] Oxygen saturation 2023-01-29 98 /min University of in Arterial blood 14:05:00 [facility] by Pulse oximetry Branch Body temperature 2023-01-29 36.28 Radha University of 13:35:00 [facility] Body height 2023-01-22 167.6 cm University of 17:00:00 [facility] Body weight 2023-01-22 117.935 kg University of 17:00:00 [facility] BMI 2023-01-22 41.97 kg/m2 University of 17:00:00 [facility] Systolic blood 2023-01-29 142 mm[Hg] University of pressure 13:45:00 [facility] Diastolic blood 2023-01-29 102 mm[Hg] University o f pressure 13:45:00 [facility] Respiratory rate 2023-01-29 14 /min University of 13:45:00 [facility] Heart rate 2023-01-29 82 /min University of 13:40:00 [facility] Oxygen saturation 2023-01-29 98 /min University of in Arterial blood 13:40:00 [facility] by Pulse oximetry Branch Body temperature 2023-01-29 36.28 Radha University of 13:35:00 [facility] Body height 2023-01-22 167.6 cm University of 17:00:00 [facility] Body weight 2023-01-22 117.935 kg University of 17:00:00 [facility] BMI 2023-01-22 41.97 kg/m2 University of 17:00:00 [facility] Systolic blood 2023-01-08 120 mm[Hg] was moving her University of pressure 14:30:00 arm [facility] Diastolic blood 2023-01-08 85 mm[Hg] was moving her University of pressure 14:30:00 arm [facility] Heart rate 2023-01-08 91 /min University of 14:30:00 [facility] Respiratory rate 2023-01-08 28 /min University of 14:30:00 [facility] Oxygen saturation 2023-01-08 100 /min University of in Arterial blood 14:30:00 [facility] david by Pulse oximetry Branch Body height 2023-01-02 167.6 cm University of 18:15:00 [facility] Body weight 2023-01-02 117.935 kg University of 18:15:00 [facility] BMI 2023-01-02 41.97 kg/m2 University of 18:15:00 [facility] Systolic blood 2023-01-08 120 mm[Hg] was moving her University of pressure 14:30:00 arm [facility] Diastolic blood 2023-01-08 85 mm[Hg] was moving her University of pressure 14:30:00 arm [facility] Heart rate 2023-01-08 91 /min University of 14:30:00 [facility] Respiratory rate 2023-01-08 28 /min University of 14:30:00 [facility] Oxygen saturation 2023-01-08 100 /min University of in Arterial blood 14:30:00 [facility] david by Pulse oximetry Branch Body height 2023-01-02 167.6 cm University of 18:15:00 [facility] Body weight 2023-01-02 117.935 kg University of 18:15:00 [facility] BMI 2023-01-02 41.97 kg/m2 University of 18:15:00 [facility] Systolic blood 2021-11-09 126 mm[Hg] University of pressure 04:00:00 [facility] Diastolic blood 2021-11-09 82 mm[Hg] University o f pressure 04:00:00 [facility] Heart rate 2021-11-09 82 /min University of 04:00:00 [facility] Body temperature 2021-11-09 37.22 Radha University of 04:00:00 [facility] Respiratory rate 2021-11-09 21 /min University of 04:00:00 [facility] Oxygen saturation 2021-11-09 100 /min University of in Arterial blood 04:00:00 [place] [facility] Pulse oximetry [facility] Body weight 2021-11-08 127.007 kg University of 23:54:00 [facility] BMI 2021-11-08 45.19 kg/m2 University of 23:54:00 [facility] Systolic blood 2021-10-31 125 mm[Hg] University of pressure 18:09:00 [facility] Diastolic blood 2021-10-31 92 mm[Hg] University o f pressure 18:09:00 [facility] Heart rate 2021-10-31 97 /min University of 18:09:00 [facility] Body temperature 2021-10-31 36.67 Radha University of 18:09:00 [facility] Respiratory rate 2021-10-31 18 /min University of 18:09:00 [facility] Body height 2021-10-31 167.6 cm University of 18:09:00 [facility] Body weight 2021-10-31 127.007 kg University of 18:09:00 [facility] BMI 2021-10-31 45.19 kg/m2 University of 18:09:00 [facility] Oxygen saturation 2021-10-31 100 /min University of in Arterial blood 18:09:00 [facility] david by Pulse oximetry Branch Systolic blood 2020-02-01 124 mm[Hg] University of pressure 01:00:00 [facility] Diastolic blood 2020-02-01 87 mm[Hg] University o f pressure 01:00:00 [facility] Heart rate 2020-02-01 88 /min University of 01:00:00 [facility] Respiratory rate 2020-02-01 18 /min University of 01:00:00 [facility] Oxygen saturation 2020-02-01 100 /min University of in Arterial blood 01:00:00 [facility] by Pulse oximetry Branch Body temperature 2020-01-31 37.78 Radha University of 23:19:00 [facility] Body weight 2020-01-31 122.471 kg University of 23:19:00 [facility] BMI 2020-01-31 43.58 kg/m2 University of 23:19:00 [facility] Systolic blood 2020-02-01 124 mm[Hg] University of pressure 01:00:00 [facility] Diastolic blood 2020-02-01 87 mm[Hg] University o f pressure 01:00:00 [facility] Heart rate 2020-02-01 88 /min University of 01:00:00 [facility] Respiratory rate 2020-02-01 18 /min University of 01:00:00 [facility] Oxygen saturation 2020-02-01 100 /min University of in Arterial blood 01:00:00 [facility] david by Pulse oximetry Branch Body temperature 2020-01-31 37.78 Radha University of 23:19:00 [facility] Body weight 2020-01-31 122.471 kg University of 23:19:00 [facility] BMI 2020-01-31 43.58 kg/m2 University of 23:19:00 [facility] Systolic blood 2019-07-16 138 mm[Hg] University of pressure 21:40:44 [facility] Diastolic blood 2019-07-16 99 mm[Hg] University o f pressure 21:40:44 [facility] Heart rate 2019-07-16 94 /min University of 21:40:44 [facility] Body temperature 2019-07-16 36.78 Radha University of 21:40:44 [facility] Respiratory rate 2019-07-16 16 /min University of 21:40:44 [facility] Oxygen saturation 2019-07-16 100 /min University of in Arterial blood 21:40:44 [facility] by Pulse oximetry Branch Body height 2019-07-16 167.6 cm University of 18:06:00 [facility] Body weight 2019-07-16 129.275 kg University of 18:06:00 [facility] BMI 2019-07-16 46.00 kg/m2 University of 18:06:00 [facility] Systolic blood 2019-07-16 138 mm[Hg] University of pressure 21:40:44 [facility] Diastolic blood 2019-07-16 99 mm[Hg] University o f pressure 21:40:44 [facility] Heart rate 2019-07-16 94 /min University of 21:40:44 [facility] Body temperature 2019-07-16 36.78 Radha University of 21:40:44 [facility] Respiratory rate 2019-07-16 16 /min University of 21:40:44 [facility] Oxygen saturation 2019-07-16 100 /min University of in Arterial blood 21:40:44 [facility] by Pulse oximetry Branch Body height 2019-07-16 167.6 cm University of 18:06:00 [facility] Body weight 2019-07-16 129.275 kg University of 18:06:00 [facility] BMI 2019-07-16 46.00 kg/m2 University of 18:06:00 [facility] Procedures Procedure Date / Time Performing Clinician Source Performed [place] TIME OR 2023-01-29 13:50:00 Avi Mason [facility] (NON-REPORTABLE) Medical Branch [place] TIME OR 2023-01-29 13:50:00 Avi Mason [facility] (NON-REPORTABLE) Medical Branch BLOCK EPIDURAL 2023-01-29 13:15:00 Avi Mason [facility] POCT GLUCOSE (AUTOMATED) 2023-01-29 12:07:00 Avi Mason [facility] POCT GLUCOSE (AUTOMATED) 2023-01-29 12:07:00 Avi Mason [facility] PATIENT QUESTIONNAIRE 2023-01-29 05:01:00 [facility] - ADC 2023-01-29 05:01:00 Doctor Unassigned, No [facility] BLOCK EPIDURAL 2023-01-08 13:53:00 Avi Mason [facility] POCT GLUCOSE (AUTOMATED) 2023-01-08 13:48:00 Avi Mason [facility] POCT GLUCOSE (AUTOMATED) 2023-01-08 13:48:00 Avi Mason [facility] PATIENT QUESTIONNAIRE 2023-01-08 06:01:00 Doctor Unassigned, No [facility] EXTERNAL PROVIDER 2022-12-28 06:01:00 Doctor Unassigned, No [facility] Medical [place] EXTERNAL PROVIDER 2022-12-28 06:01:00 Doctor Unassigned, No [facility] MR CERVICAL SPINE WO 2022-12-05 22:23:16 Requisition, Paper [facility] COMP. METABOLIC PANEL 2021-11-09 02:35:00 Kendra Urias [facility] ([id number]) Medical Branch CBC WITH DIFF 2021-11-09 02:35:00 Kendra Urias [facility] URINALYSIS 2021-11-09 02:35:00 Kendra Urias [facility] CT ABDOMEN PELVIS WO 2021-11-09 01:38:35 Kendra Urias [facility] CONTRAST [facility] Branch CONSENT/REFUSAL FOR 2021-11-08 23:43:22 Doctor Unassigned, No [facility] DIAGNOSIS AND TREATMENT Name Medical Branch URINALYSIS 2021-10-31 19:05:00 Patricia Sultana [facility] y [facility] NOTICE OF PRIVACY 2021-10-31 18:02:41 Doctor Unassigned, No Univ [facility] Medical Branch CONSENT/REFUSAL FOR 2021-10-31 17:58:55 Doctor Unassigned, No [facility] [place] DIAGNOSIS AND TREATMENT Name Medical Branch MRI CERVICAL SPINE WO 2021-06-14 14:00:00 System, Provider Not [facility] CONTRAST In MRI CERVICAL SPINE WO 2021-06-14 14:00:00 System, Provider Not [facility] CONTRAST In XR LUMBAR SPINE 2 VW 2020-02-24 16:04:[address] [facility] ASSIGNMENT OF BENEFITS 2020-02-24 15:41:05 Doctor [facility] No [facility] XR CHEST 2 VW 2020-02-01 00:08:29 Claudio Rena San[facility] TROPONIN I 2020-02-01 00:08:00 Claudio Rena [facility] COMP. METABOLIC PANEL 2020-02-01 00:08:00 Rena Snyder [facility] ([id number]) [facility] CBC WITH DIFFERENTIAL 2020-02-01 00:08:00 Rena Snyder [facility] EKG-12 LEAD 2020-01-31 23:52:43 [facility] ADC,CLC OR [facility] ONLY - 2020-01-31 23:42:00 Rena Snyder [facility] INFLUENZA A & B DIRECT Medical B ranch ANTIGEN CONSENT/REFUSAL FOR 2020-01-31 22:59:29 Doctor Unassigned, No [facility] [place] DIAGNOSIS AND TREATMENT [facility] Medical Branch URINALYSIS 2019-07-16 19:48:00 Johnny Moreno [place] [facility] NOTICE OF PRIVACY 2019-07-16 18:00:11 Doctor Unassigned, No Univ ersity [facility] Medical Branch CONSENT/REFUSAL FOR 2019-07-16 17:59:40 Doctor Unassigned, No [facility] [place] DIAGNOSIS AND TREATMENT [facility] Medical Branch Encounters Start End Encounter Admission Attending Care Care Encounter Source Date/Time Date/Time Type Type Clinicians Facility Department ID 2023-03-07 [facility] [id number] Univers 08:58:[address] [facility] 2023-02-05 Outpatient Mon[address] MASON [facility] ANS [id number] Univers 16:02:[address] [facility] 2023-05-31 2023-05-31 [facility]patient [facility] [id number] Univers 15:30:00 15:30:[address] [facility] 2023-01-29 2023-01-29 [facility] [id number] Univers 06:55:00 09:10:[address] [facility] 2023-01-29 2023-01-29 [facility] 1.2.840.114 [id number] Univers 06:55:00 09:10:00 Encounter Avi Barone [place] [id number] [place] [id number] [address] 2023-01-29 2023-01-29 [facility] [id number] Univers 08:26:00 08:47:00 Avi S [place] [id number] [place] [id number] [address] 2023-01-08 2023-01-08 Outpatient [facility] ANS [id number] Univers 07:27:00 08:40:[address] [facility] 2023-01-08 2023-01-08 [facility] 1.2.840.114 [id number] Univers 07:27:00 08:40:00 Encounter Avi S [place] [id number] [place] [id number] [address] 2023-01-08 2023-01-08 Surgery [facility] [id number] Univers 08:18:00 08:39:00 Avi BARRAZA [id number] [place] [id number] [facility] 020 Branch 2023-01-08 2023-01-08 Orders Doctor SCOTT 1.2.840.114 [id number] Univers 00:00:00 00:00:00 Only Unassigned, [place] [id number] ity of [place] [facility] 4.2.7.2.686 Phong as [id number] [facility] 009 Branch 2023-01-05 2023-01-05 Curber Kristin, Adc Lab Main [facility] 1.2.8 40.114 [id number] Univers 08:45:00 09:00:00 Visit Avi Mason 350.1.13.1 0 [place] [id number] [facility] [facility] 353 [facility] 2023-01-05 2023-01-05 Outpatient R MARLON [facility] [id number] Univers 08:45:00 08:45:[address] [facility] 2022-12-05 2022-12-05 Outpatient R RADIOLOGY [facility] [id number] Univers 14:16:21 23:59:[address] [facility] 2022-12-05 2022-12-[address] [facility] 1.2.840.114 [id number] Univers 14:16:21 23:59:00 Encounter HEALTH [id number] it[place] KAUR [id number] [facility] 804 Branch ([facility]) 2022-06-21 2022-06-21 Outpatient R MAXIMO [facility] [id number] Univers 13:30:00 13:30:[address] [facility] 2021-11-09 2021-11-09 Outpatient R RADIOLOGY [facility] RAD [id number] Univers 00:00:00 00:00:[address] [facility] 2021-11-08 2021-11-08 Emergency X [facility] ERT [id number] Univers 17:57:00 22:35:[address] [facility] 2021-11-08 2021-11-08 Emergency [facility] [id number] Univers 17:57:00 22:35:00 Kendra BARRAZA 350.1.13.10 i ty [facility] 4.2.7.2.686 [facility] [id number] [address] 2021-10-31 2021-10-31 Emergency X [facility] ERT [id number] Univers 12:10:00 15:08:00 [facility] 2021-10-31 2021-10-31 Emergency [facility] 1.2.840.114 [id number] Univers 12:10:00 15:08:00 Patricia BARRAZA 350.1.13.10 ity [facility] 4.2.7.2.686 [facility] [id number] [address] 2021-10-31 2021-10-31 Orders Doctor SCOTT 1.2.840.114 [id number] Univers 00:00:00 00:00:00 Only [place]assigned[place] 350.1.13.10 ity of [facility] 4.2.7.2.686 Phong [id number] [place] [address] Branch 2021-06-14 2021-06-15 Outpatient [facility] [id number] Memoria 13:44:00 04:59:00 r Sav 00 l [facility] 2021-06-14 2021-06-15 Outpatient [facility] [id number] Memoria 13:44:00 04:59:00 monique Ang 00 l [facility] 2021-06-14 2021-06-14 Outpatient VANNESA MathurPL [id number] 08:44:00 23:59:00 Clemente Esqueda 2021-06-14 2021-06-14 Outpatient LINDA MATHUR [id number] MHFAY 08:44:00 23:59:00 CLEMENTE 2021-06-07 2021-06-07 EXT MHH OP EXT MSRDP 1.2.840.114 [id number] [place] 00:00:00 00:00:00 LOCATION 350.1.13.58 H ealth 9.2.7.2.686 [id number] 2021-06-07 2021-06-07 EXT MHH OP EXT MSRDP 1.2.840.114 [id number] [place] 00:00:00 00:00:00 LOCATION 350.1.13.58 H ealth 9.2.7.2.686 [id number] 2020-07-01 2020-07-01 Outpatient R RADIOLOGY [facility] [id number] Univers 00:00:00 00:00:00 ity of [facility] 2020-02-24 2020-02-24 Outpatient R RADIOLOGY [facility] [id number] Univers 10:47:13 23:59:00 ity of [facility] 2020-02-24 2020-02-[address] [facility] 1.2.840.114 [id number] Univers 10:45:00 23:59:00 Encounter Dickens 350.1.13.10 ity of [place] 4.2.7.2.686 [facility] [id number] [facility] 807 [place] 2020-02-24 2020-02-24 [facility] Radiology [facility] 1.2.840.114 [id number] 10:45:00 23:59:00 Encounter [place] 350.1.13.10 [place] 4.2.7.2.686 [place] [id number] 2020-02-24 2020-02-24 Orders Doctor SCOTT 1.2.840.114 [id number] Univers 00:00:00 00:00:00 Only [place]assigned[place] 350.1.13.10 ity [place] [facility] 4.2.7.2.686 Phong [id number] [facility] 009 [place] 2020-02-24 2020-02-24 Orders Doctor SCOTT 1.2.840.114 [id number] 00:00:00 00:00:00 Only [place]assigned[place] 350.1.13.10 [place] [facility] 4.2.7.2.686 [id number] 2020-01-31 2020-01-[address] [facility] 1.2.840.114 [id number] Univers 18:21:40 21:20:00 Rena Barraza 350.1.13.10 ity of [place] 4.2.7.2.686 [facility] [id number] [address] 2020-01-31 2020-01-31 Emergency X CLAUDIO CAMARILYN ERT [id number] [facility] 18:21:40 21:20:[address] [facility] 2020-01-31 2020-01-31 Emergency Claudio CAMARILYN 1.2.840.114 [id number] 18:21:40 21:20:00 Rena Barraza 350.1.13.10 [place] 4.2.7.2.686 [place] [id number] 2019-07-16 2019-07-16 Emergency Johnny Moreno [facility] 1.2.840. 114 [id number] [facility] 15:51:43 16:44:00 Johnny Moreno 350.1.13.10 ity of [place] 4.2.7.2.686 [facility] [id number] [address] 2019-07-16 2019-07-16 Emergency Johnny Moreno [facility] 1.2.840. 114 [id number] 15:51:43 16:44:00 Johnny Moreno 350.1.13.10 [place] 4.2.7.2.686 [place] [id number] Results Test Description Test Time Test Comments Results Result Comments Source POCT GLUCOSE (AUTOMATED) 2023-01-29 12:08:58 Test Item Value Reference Range Interpretation Comme nts POCT GLU (test code = 3839949725) 177 mg/dL 70-110 H Lab Interpretation (test code = 17387-6) Abnormal [facility] GLUCOSE (AUTOMATED)2023-01-29 12:08:58 Test Item Value Reference Range Interpretation Comments POCT GLU (test code = 7602244799) 177 mg/dL 70-110 H Lab Interpretation (test code = Abnormal 86384-3) [facility] GLUCOSE (AUTOMATED)2023-01-08 13:56:11 Test Item Value Reference Range Interpretation Comments POCT GLU (test code = 1735244709) 203 mg/dL 70-110 H Lab Interpretation (test code = Abnormal 78256-6) [facility] 13:56:11 Test Item Value Reference Range Interpretation Comments POCT GLU (test code = 1870033945) 203 mg/dL 70-110 H Lab Interpretation (test code = Abnormal 87993-8) [facility]. METABOLIC PANEL (29992)2021-11-09 03:02:08 Test Item Value Reference Range Interpretation Comments NA (test code = 139 mmol/L 135-145 5427617051) K (test code = 4.2 mmol/L 3.5-5.0 0036132582) CL (test code = 102 mmol/L 98-108 5207132288) CO2 TOTAL (test code = 27 mmol/L 23-31 4887790280) AGAP (test code = 2-16 8211566455) BUN (test code = 13 mg/dL 7-23 7101928973) GLUCOSE (test code = 196 mg/dL 70-110 H 6925207789) CREATININE (test code = 0.88 mg/dL 0.50-1.04 2301243532) TOTAL BILI (test code = 0.4 mg/dL 0.1-1.2 9675782393) CALCIUM (test code = 9.7 mg/dL 8.6-10.6 6983792991) T PROTEIN (test code = 8.1 g/dL 6.3-8.2 3580726200) ALBUMIN (test code = 4.2 g/dL 3.5-5.0 1606655748) ALK PHOS (test code = 89 U/L 34-122 8111881527) ALTv (test code = 17 U/L 5-35 1742-6) AST(SGOT) (test code = 22 U/L 13-40 6431958367) eGFR (test code = mL/min/1.73m2 0893206524) OLGA LIDIA (test code = OLGA LIDIA) Association of Glomerular Filtration Rate (GFR) and Staging of Kidney Disease* + --+ --+ ------+| GFR (mL/min/1.73 m2) ?| With Kidney Damage ?| ?Without Kidney Damage+ --------+ --------+ +| ?>90 ?| ?Stage one ?| ? Normal ?+ ---+ ---+ -------+| ?60-89 ?| ?Stage two ?| ? Decreased GFR ? + --+ --+ ------+| ?30-59 ?| ?Stage three ?| ? Stage three ? + --+ --+ ------+| ?15-29 ?| ?Stage four ? | ? Stage four ?+ ---+ ---+ -------+| ?<15 (or dialysis) ? ?| ?Stage five ? | ? Stage five ?+ ---+ ---+ -------+ *Each stage assumes the associated GFR level has been in effect for at least three months. ?Stages 1 to 5, with or without kidney disease, indicate chronic kidney disease. Notes: Determination of stages one and two (with eGFR >59mL/min/1.73 m2) requires estimation of kidney damage for at least three months as defined by structural or functional abnormalities of the kidney, manifested by either:Pathological abnormalities or Markers of kidney damage (including abnormalities in the composition of the blood or urine or abnormalities in imaging tests). Lab Interpretation Abnormal (test code = 82445-4) [facility] WITH [id number] 02:50:08 Test Item Value Reference Range Interpretation Comments WBC (test code = See_Comment H [Automated 2392-2) message] The sy stem which generated this result transmitted reference range : 4.30 - 11.10 10*3/?L. The reference range was not used to interpret this result as normal/abnormal . RBC (test code = See_Comment [Automated 686-1) message] The sy stem which generated this result transmitted reference range : 3.93 - 5.25 10*6/?L. The reference range was not used to interpret this result as normal/abnormal . HGB (test code = 13.5 g/dL 11.6-15.0 718-7) HCT (test code = 40.1 % 35.7-45.2 4544-3) MCV (test code = 81.2 fL 80.6-95.5 787-2) MCH (test code = 27.3 pg 25.9-32.8 785-6) MCHC (test code = 33.7 g/dL 31.6-35.1 786-4) RDW-SD (test code = 42.6 fL 39.0-49.9 03352-9) RDW-CV (test code = 14.5 % 12.0-15.5 788-0) PLT (test code = See_Comment H [Automated 777-3) message] The sy stem which generated this result transmitted reference range : 166 - 358 10*3/ ?L. The reference r gorge was not used to interpret this result as normal/abnormal . MPV (test code = 9.7 fL 9.5-12.9 76667-5) NRBC/100 WBC (test See_Comment [Automat ed code = 9868119835) message] The system which generated this result transmitted reference range : 0.0 - 10.0 /100 WBCs. The refer ence range was not u sed to interpret th is result as normal/abnormal . NRBC x10^3 (test code <0.01 See_Comment [Auto mated = 5987418205) message] The s ystem which generated this result transmitted reference range : 10*3/?L. The reference range was not used to interpret this result as normal/abnormal . GRAN MAT (NEUT) % 64.8 % (test code = 770-8) IMM GRAN % (test code 0.60 % = 9937386638) LYMPH % (test code = 28.6 % 736-9) MONO % (test code = 4.1 % 5905-5) EOS % (test code = 1.4 % 713-8) BASO % (test code = 0.5 % 706-2) GRAN MAT x10^3(ANC) 8.10 10*3/uL 1.88-7.09 H (test code = 8097090330) IMM GRAN x10^3 (test 0.07 10*3/uL 0.00-0.06 H code = 7685599929) LYMPH x10^3 (test code 3.58 10*3/uL 1.32-3.29 H = 731-0) MONO x10^3 (test code 0.51 10*3/uL 0.33-0.92 = 742-7) EOS x10^3 (test code = 0.18 10*3/uL 0.03-0.39 711-2) BASO x10^3 (test code 0.06 10*3/uL 0.01-0.07 = 704-7) Lab Interpretation Abnormal (test code = 95335-6) [facility] [id number] 10:15:56Name: Esperanza : 1975 Sex: F - SCR MAMM BILATERAL ELAINE CAD DIGITALBILATERAL DIGITAL SCREENING MAMMOGRAM 3D/2D WITH CAD: 10/04/2021LINICAL: Asymptomatic. Digital breast tomosynthesis was performed in addition to routine CC and MLO views. Current mammographic images wereevaluated by [employer] CAD (computer-aided detection) software. Comparison is made to exam dated 05/06/2016 mammogram - [facility] Mammography. There are scattered fibroglandular tissuesin both breasts. There is a benign intramammary node in the left breast. No suspicious mass, architectural distortion, malignant type calcification, or lymph node abnormality detected. Breast architecture is stable compared to prior exams.IMPRESSION: BENIGNThere is no mammographic evidence of malignancy. Resume annual screening mammography in one year. Didi wang/penrad:10/10/2021 10:15:56 [employer] Steel Erector: Diana Jeong MM, [facility] [place] [facility] Mammographyletter sent: BIRADS 1-2 Normal Mammogram BI-RADS: 2 BenignXR LUMBAR SPINE 2 [id number] 16:11:50HISTORY: Peripheral nerve disorder. FINDINGS: AP and lateral standing views of the lumbar spines showed 5lumbar vertebrae with no acute compression fracture or dislocation. Lateralview shows exaggerated lordosis and AP view showed minimal dextroscoliosis. There is probably minimal narrowing of L4-L5 and L5-S1 disc spaces. Mildfacet arthritis is noted at lower 3 lumbar levels. Battery pack is seen implanted in left gluteal soft tissues with electrodewires extending toward the thoracic spine. No calcified kidney stones. Noaggressive bone lesions. CONCLUSIONS: Exaggerated lumbar lordosis, minimal dextroscoliosis andprobable minimal narrowing of L4-L5 and L5-S1 disc spaces. [facility], Radiant Results Inft User - 02/24/2020 11:13 AM CDTHISTORY: Peripheral nerve disorder.FINDINGS: AP and lateral standing views of the lumbar spines showed 5lumbar vertebrae with no acute compression fracture or dislocation. Lateralview shows exaggerated lordosis and AP view showed minimal dextroscoliosis.There is probably minimal narrowing of L4-L5 and L5-S1 disc spaces. Mildfacet arthritis is noted at lower 3 lumbar levels.Battery pack is seen implanted in left gluteal soft tissues with electrodewires extending toward the thoracic spine. No calcified kidney stones. Noaggressive bone lesions.CONCLUSIONS: Exaggerated lumbar lordosis, minimal dextroscoliosis andprobable minimal narrowing of L4-L5 and L5-S1 disc spaces.[facility] - INFLUENZA A & B DIRECT [id number] 01:19:00 Test Item Value Reference Range Interpretation Comments Influenza A (test code = 86979-3) Negative Negative Influenza B (test code = 50436-4) Negative Negative Lab Interpretation (test code = Normal 47162-7) [facility] 2 [id number] 01:03:17 No acute cardiopulmonary process. Preliminary Report Dictated by Resident: Romeo River MD., have reviewed this study and agree with the abovereport.PROCEDURE: XR CHEST 2 VW CLINICAL INDICATION: r/o pna COMPARISON: 05/08/2018 TECHNIQUE: Frontal and lateral views of the chest were obtained. FINDINGS: The lungs are well-expanded and clear without focal consolidation, pleuraleffusion,or pneumothorax. The cardiac silhouette is normal in size. No acute osseous abnormality. Spinal stimulator leads terminate within themid thoracic spinal canal. [facility], Radiant Results Inft User - 01/31/2020 8:04 PM CDTPROCEDURE: XR CHEST 2 VWCLINICAL INDICATION: r/o pna COMPARISON: 05/08/2018TECHNIQUE: Frontal and lateral views of the chest were obtained.FINDINGS:The lungs are well-expanded and clear without focal consolidation, pleuraleffusion, or pneumothorax. The cardiac silhouette is normal in size. No acute osseous abnormality. Spinal stimulator leads terminate within themid thoracic spinal canal.IMPRESSIONNo acute cardiopulmonary process.Preliminary Report Dictated by Resident: Romeo Brown MD., have reviewed this study and agree with the abovereport.[facility] CenterTROPONIN [id number] 00:55:00 Test Item Value Reference Range Interpretation Comments TROPONIN I (test 0.001 ng/mL See_Comment [Automated code = 4525244660) message] The system which generated this result transmitted reference range : <=0.034. The reference range was not used to interpret this result as normal/abnormal . OLGA LIDIA (test code = Equal or Less than OLGA LIDIA) 0.034 ng/ml---Normal ?Note: Cardiac troponin begins to rise 3-4 hours after the onset of ischemia. Repeat in 4-6 hours if the sample was drawn within 3-4 hours of the onset of the symptom and found normal. Between 0.035 and 0.120 ng/mL--- Borderline. Questionable myocardial injury or necrosis ? ?Note: Serial measurement may be necessary to confirm or exclude the diagnosis of myocardial injury or necrosis; Clinical correlation (symptoms, EKGs, imaging studies, and others) required; Repeat in 4-6 hours if clinically indicated. ? Equal or Higher than 0.121 ng/mL---Abnormal. Myocardial Injury or Necrosis Likely ? Biotin has been reported to cause a negative bias, interpret results relative to patient's use of biotin. ? Lab Interpretation Normal (test code = 86835-3) [facility] CenterCB WITH [id number] 00:46:00 Test Item Value Reference Range Interpretation Comments WBC (test code = See_Comment H [Automated 6690-2) message] The sy stem which generated this result transmitted reference range : 4.30 - 11.10 10*3/?L. The reference range was not used to interpret this result as normal/abnormal . RBC (test code = See_Comment [Automated 789-8) message] The sy stem which generated this result transmitted reference range : 3.93 - 5.25 10*6/?L. The reference range was not used to interpret this result as normal/abnormal . HGB (test code = 13.4 g/dL 11.6-15 718-7) HCT (test code = 39.1 % 35.7-45.2 4544-3) MCV (test code = 83.7 fL 80.6-95.5 787-2) MCH (test code = 28.7 pg 25.9-32.8 785-6) MCHC (test code = 34.3 g/dL 31.6-35.1 786-4) RDW-SD (test code = 43.8 fL 39-49.9 50174-2) RDW-CV (test code = 14.5 % 12-15.5 788-0) PLT (test code = See_Comment [Automated 777-3) message] The sy stem which generated this result transmitted reference range : 166 - 358 10*3/ ?L. The reference r gorge was not used to interpret this result as normal/abnormal . MPV (test code = 11.9 fL 9.5-12.9 52031-8) NRBC/100 WBC (test See_Comment [Automat ed code = 5182729761) message] The system which generated this result transmitted reference range : 0.0 - 10.0 /100 WBCs. The refer ence range was not u sed to interpret th is result as normal/abnormal . NRBC x10^3 (test code <0.01 See_Comment [Auto mated = 9201667814) message] The s ystem which generated this result transmitted reference range : 10*3/?L. The reference range was not used to interpret this result as normal/abnormal . GRAN MAT (NEUT) % 59.5 % (test code = 770-8) IMM GRAN % (test code 0.30 % = 1837832402) LYMPH % (test code = 34.9 % 736-9) MONO % (test code = 3.5 % 5905-5) EOS % (test code = 1.4 % 713-8) BASO % (test code = 0.4 % 706-2) GRAN MAT x10^3(ANC) 6.93 10*3/uL 1.88-7.09 (test code = 0345674097) IMM GRAN x10^3 (test 0.03 10*3/uL 0-0.06 code = 8861803000) LYMPH x10^3 (test code 4.07 10*3/uL 1.32-3.29 H = 731-0) MONO x10^3 (test code 0.41 10*3/uL 0.33-0.92 = 742-7) EOS x10^3 (test code = 0.16 10*3/uL 0.03-0.39 711-2) BASO x10^3 (test code 0.05 10*3/uL 0.01-0.07 = 704-7) Lab Interpretation Abnormal (test code = 88576-9) [facility]. METABOLIC PANEL ([id number])2020-02-01 00:43:00 Test Item Value Reference Range Interpretation Comments NA (test code = 140 mmol/L 135-145 1142911141) K (test code = 3.8 mmol/L 3.5-5 7611416474) CL (test code = 103 mmol/L 98-108 9586333053) CO2 TOTAL (test code = 28 mmol/L 23-31 0081540502) AGAP (test code = 2-16 3571871836) BUN (test code = 14 mg/dL 7-23 9965153413) GLUCOSE (test code = 135 mg/dL 70-110 H 3745925913) CREATININE (test code = 0.84 mg/dL 0.5-1.04 8676971126) TOTAL BILI (test code = 0.2 mg/dL 0.1-1.4 5759847639) CALCIUM (test code = 9.5 mg/dL 8.6-10.6 4601630159) T PROTEIN (test code = 8.4 g/dL 6.3-8.2 H 4090068500) ALBUMIN (test code = 4.4 g/dL 3.5-5 1893741039) ALK PHOS (test code = 79 U/L 34-122 7746555978) ALTv (test code = 15 U/L 5-35 1742-6) AST(SGOT) (test code = 21 U/L 13-40 8878987085) eGFR Calculation mL/min/1.73m2 (Non-) (test code = 5914141918) eGFR Calculation mL/min/1.73m2 () (test code = 6178393859) OLGA LIDIA (test code = OLGA LIDIA) Association of Glomerular Filtration Rate (GFR) and Staging of Kidney Disease* + --+ --+ ------+| GFR (mL/min/1.73 m2) ?| With Kidney Damage ?| ?Without Kidney Damage+ --------+ --------+ +| ?>90 ?| ?Stage one ?| ? Normal ?+ ---+ ---+ -------+| ?60-89 ?| ?Stage two ?| ? Decreased GFR ? + --+ --+ ------+| ?30-59 ?| ?Stage three ?| ? Stage three ? + --+ --+ ------+| ?15-29 ?| ?Stage four ? | ? Stage four ?+ ---+ ---+ -------+| ?<15 (or dialysis) ? ?| ?Stage five ? | ? Stage five ?+ ---+ ---+ -------+ *Each stage assumes the associated GFR level has been in effect for at least three months. ?Stages 1 to 5, with or without kidney disease, indicate chronic kidney disease. Notes: Determination of stages one and two (with eGFR >59mL/min/1.73 m2) requires estimation of kidney damage for at least three months as defined by structural or functional abnormalities of the kidney, manifested by either:Pathological abnormalities or Markers of kidney damage (including abnormalities in the composition of the blood or urine or abnormalities in imaging tests). Lab Interpretation Abnormal (test code = 01541-4) [facility] [id number] 21:03:00 Test Item Value Reference Range Interpretation Comments APPEARANCE (test code = Clear Clear 0691790342) COLOR (test code = Pale Yellow Yellow A 6303863651) PH (test code = 4.8-8.0 2470657637) SP GRAVITY (test code = 1.003-1.030 7579950396) GLU U QUAL (test code = 500 mg/dL Negative A 5568606460) BLOOD (test code = Negative Negative 1484021502) KETONES (test code = Negative Negative 6478686016) PROTEIN (test code = Negative Negative 2887-8) UROBILIN (test code = 0.2 mg/dL See_Comment [Auto mated 5650727356) message] The sy stem which generated this result transmitted reference range : 0-1.0 mg/dL. Th e reference range was not used to interpret this result as normal/abnormal . BILIRUBIN (test code = Negative Negative 6592183757) NITRITE (test code = Negative Negative 0305529469) LEUK LIZBETH (test code = Negative Negative 8322369371) RBC/HPF (test code = See_Comment [Autom ated 8878139810) message] The sy stem which generated this result transmitted reference range : 0 - 3 HPF. The reference range was not used to interpret this result as normal/abnormal . WBC/HPF (test code = See_Comment [Autom ated 9162518619) message] The sy stem which generated this result transmitted reference range : 0 - 5 HPF. The reference range was not used to interpret this result as normal/abnormal . BACTERIA (test code = Negative Negative 7852959027) SQ EPITH (test code = HPF 3735414556) Lab Interpretation Abnormal (test code = 00557-3) [facility]"
[2023-03-26 13:19] VITALS: BMI 41.9
[2023-03-26] MEDS ORDERED: ONDANSETRON 4 MG/2 ML VIAL IV PRN (13:20)
[2023-03-26] MEDS: CEFAZOLIN 1 GM in NA CHLORIDE 0.9% 50 ML IVPB SCH ×2 (13:22→23:15)
[2023-03-26] MEDS ORDERED: ACETAMINOPHEN 325 MG TABLET PO PRN (13:23)
--- NOTE | 2023-03-26 13:49 | P.CNS ---
Date of Consult: 03/26/23 Reason for Consult: Medica l Management Requesting Physician: Reggie Martinez Chief Complaint: Neck pain History of Present Illness: Patient is a 47-year-old female with a past medical history significant for hypertension, DM 2, obesity who presented for a planned procedure with her orthopedic spine Doctor. Patient reported that she has been having neck pain for the past 3 years and has attempted conservative management techniques, physical therapy, steroid injections and medications use but has not experienced any improvement in symptoms. Patient indicated that pain radiates to bilateral shoulders. Patient reported associated signs and symptoms of numbness and tingling in bilateral shoulders and arms. Patient rated pain before procedure as 7/10 in severity and described pain as aching in quality. Patient denies any other signs or symptoms. Symptoms are aggravated by movement and relieved by nothing. Patient agreed with orthopedic surgeon to perform a C4-C7 ACDF. Patient tolerated procedure. Patient currently lying in bed comfortably. Allergies codeine Allergy (Verified 03/26/23 06:31) Nausea/Vomiting Home Medications: Lisinopril [Zestril] 40 mg PO DAILY 02/17/15 Amlodipine Besylate 5 mg PO DAILY 03/22/23 Cyclobenzaprine [Flexeril] 10 mg PO TID PRN 03/22/23 Ibuprofen [Advil] 200 mg PO PRN PRN 03/22/23 Tirzepatide [Mounjaro] 5 mg SQ SEECOM 03/22/23 - Past Medical/Surgical History Diabetic: Yes -: HTN -: IDDM -: Spinal cord stimulator on R side -: hysterectomy -: Spinal cord stimulator placement -: - Family History Mother Medical History: Heart disease, Diabetes - Social History Smoking Status: Never smoker Alcohol use: No CD- Drugs: No Caffeine use: Yes Place of Residence: Home Physical Examination Temp Pulse Resp BP Pulse Ox 97.1 F 77 22 H 136/92 H 96 03/26/23 12:37 03/26/23 12:37 03/26/23 12:37 03/26/23 12:37 03/26/23 12:37 General: Alert, In no apparent distress, Oriented x3, Cooperative HEENT: Atraumatic, PERRLA, Mucous membr. moist/pink, EOMI, Sclerae nonicteric Neck: Supple, 2+ carotid pulse no bruit, No LAD, Without JVD or thyroid abnormality Respiratory: Clear to auscultation bilaterally, Normal air movement Cardiovascular: No edema, Regular rate/rhythm, Normal S1 S2, No murmurs Capillary refill: <2 Seconds Gastrointestinal: Normal bowel sounds, Soft and benign, Non-distended, No tenderness Musculoskeletal: No clubbing, No swelling, Tenderness Integumentary: No rashes, No significant lesion Neurological: Normal speech, Normal tone, Normal affect Lymphatics: No axilla or inguinal lymphadenopathy Conclusions/Impression: --Cervical spondylosis with radiculopathy. Status post C4-C5, C5-C6 and C6-C7 anterior cervical diskectomy and fusion with instrumentation (ACDF). Patient tolerated procedure. Orthopedic spine doctor on board. PT eval and treat. Continue supportive care. --Acute pain\cervicalgia. We will manage pain with current pain medication regimen. --DM2 with hyperglycemia. BS monitoring with sliding scale insulin. --Hypertension. Poorly controlled. Continue home medications and labetalol as needed. --Obesity. Likely secondary to excess calories intake. Patient counseled on weight reduction, diet and exercise therapy. --Mild leukocytosis. Likely reactive. Will reassess WBC in AM. --DVT prophylaxis with SCDs. Physician Review: Patient Assessed, Agree with Above Assessment and Plan Critical Care: No
[2023-03-26] MEDS ORDERED: INSULIN -REGULAR HUMAN 50 UNIT/0.5 ML ML SQ SCH (16:30)
[2023-03-26] MEDS: ACETAMINOPHEN 325 MG TABLET PO PRN ×2 (17:03→23:21)
[2023-03-26] MEDS: FAMOTIDINE 20 MG TAB PO SCH (17:04)
[2023-03-26] MEDS ORDERED: HYDRALAZINE HCL 20 MG/ML VIAL IV PRN (17:07)
[2023-03-26 17:37] LABS: Specific Gravity 1.016 (1.005-1.030); Urine Bilirubin NEGATIVE (Negative); Urine Blood Negative (Negative); Urine Clarity Clear (Clear); Urine Color Colorless (Yellow); Urine Glucose 4+ (Over) (Negative); Urine Protein NEGATIVE (Negative); Urine Urobilinogen Normal (Normal)
[2023-03-26] MEDS: INSULIN -REGULAR HUMAN 50 UNIT/0.5 ML ML SQ SCH ×2 (17:50→20:11)
[2023-03-26] MEDS: lisinopriL 20 MG TAB PO SCH (17:52)
[2023-03-26] MEDS: AMLODIPINE 5 MG TAB PO SCH (17:53)
[2023-03-26 22:49] VITALS: O2SAT 98
[2023-03-27] MEDS ORDERED: LABETALOL 20 MG/4ML SYRINGE IV PRN (02:37)
[2023-03-27] MEDS: CEFAZOLIN 1 GM in NA CHLORIDE 0.9% 50 ML IVPB SCH (06:13)
--- NOTE | 2023-03-27 06:57 | P.PN ---
Date of Service: 03/27/23 Subjective: ROS: 10 point ROS as noted above, otherwise negative Physical Exam: GEN: Alert, oriented, NAD HEENT: Normal conjunctiva, sclera anicteric CV: Regular rate and rhythm, no edema Pulm: Nonlabored respirations on room air ABD: Soft, nontender, nondistended MSK: No joint tenderness Integumentary: No rashes Neuro: Normal speech, normal affect vitals reviewed Problem List: VTE: Code: Dispo:
[2023-03-27] MEDS: INSULIN -REGULAR HUMAN 50 UNIT/0.5 ML ML SQ SCH (07:30)
[2023-03-27] MEDS: NA CHLORIDE 0.9% 1,000 ML IV SCH (08:00)
[2023-03-27 08:10] LABS: Absolute Lymphocytes (CBC) 2.6 K/uL (0.7-4.9); Lymphocytes % 19.2 % (15.3-44.8); MCV 86.7 fL (80-100); MPV 8.2 fL (7.6-11.3); RBC Red Blood Cell Count 4.15 M/uL (3.86-4.86)
[2023-03-27 08:14] LABS: Phosphorus 3.2 mg/dL (2.5-4.9); Potassium 3.9 mEq/L (3.5-5.1)
[2023-03-27 08:49] VITALS: BP 141/77; TEMP 97.7
[2023-03-27] MEDS ORDERED: lisinopriL 20 MG TAB PO SCH (09:00)
[2023-03-27] MEDS ORDERED: AMLODIPINE 5 MG TAB PO SCH (09:00)
[2023-03-27] MEDS: AMLODIPINE 5 MG TAB PO SCH (09:40)
[2023-03-27] MEDS: lisinopriL 20 MG TAB PO SCH (09:40)
[2023-03-27] MEDS: FAMOTIDINE 20 MG TAB PO SCH (09:41)
--- NOTE | 2023-03-27 11:01 | P.DS ---
Admission Date: 03/26/23 Discharge Date: 03/27/23 Disposition: ROUTINE DISCHARGE Discharge Condition: GOOD Reason for Admission: Neck pain Consultations: Orthopedic Spine - Dr. Martinez Brief History of Present Illness: 47yo F, PMH: hypertension, DM 2, obesity Patient presented for a planned procedure with her orthopedic spine Doctor. Patient reported that she has been having neck pain for the past 3 years and has attempted conservative management techniques, physical therapy, steroid injections and medications use but has not experienced any improvement in symptoms. Patient indicated that pain radiates to bilateral shoulders. Patient reported associated signs and symptoms of numbness and tingling in bilateral shoulders and arms. Patient rated pain before procedure as 7/10 in severity and described pain as aching in quality. Patient denies any other signs or symptoms. Symptoms are aggravated by movement and relieved by nothing. Patient agreed with orthopedic surgeon to perform a C4-C7 ACDF. Patient tolerated procedure. Patient currently lying in bed comfortably. Hospital Course: Problem List: Cervical Spondylosis with radiculopathy Acute Cervicalgia DM2 with hyperglycemia Hypertension Patient underwent anterior cervbical diskectomy and fusion of C4-C5, C5-C6, and C6-C7. She did well postoperatively and was monitored overnight. Stable for discharge home. Dr. Martinez prescribed pain medication and nausea medication through his office. Follow up with PCP within 1 week Follow up with Dr. Martinez as scheduled. Recommended to wear cervical collar for 2 weeks - ok to take off briefly for showering/eating. No need for dressing changes. Ok to remove surgical top dressing after 24hrs from surgery. Surgical glue is on the wound and will fall off on its own Physical Exam: GEN: Alert, oriented, NAD HEENT: Normal conjunctiva, sclera anicteric; c-collar in place CV: Regular rate and rhythm, no edema Pulm: Nonlabored respirations on room air ABD: Soft, nontender, nondistended Neuro: Normal speech, normal affect, intact distal sensation in upper extr emities Vital Signs/Physical Exam: Temp Pulse Resp BP Pulse Ox 97.7 F 93 H 16 141/77 H 99 03/27/23 08:00 03/27/23 08:00 03/27/23 08:00 03/27/23 08:00 03/27/23 08:00 Laboratory Data at Discharge: WBC 13.60 thou/uL (4.3-10.9) H 03/27/23 07:39 Hgb 11.8 g/dL (12.0-15.0) L 03/27/23 07:39 Hct 36.0 % (36.0-45.0) 03/27/23 07:39 Plt Count 293 thou/uL (152-406) 03/27/23 07:39 Sodium 136 mEq/L (136-145) 03/27/23 07:39 Potassium 3.9 mEq/L (3.5-5.1) 03/27/23 07:39 BUN 10 mg/dL (7-18) 03/27/23 07:39 Creatinine 0.79 mg/dL (0.55-1.02) 03/27/23 07:39 Glucose 180 mg/dL (74-106) H 03/27/23 07:39 Phosphorus 3.2 mg/dL (2.5-4.9) 03/27/23 07:39 Magnesium 1.9 mg/dL (1.6-2.4) 03/26/23 14:48 Home Medications: Lisinopril [Zestril] 40 mg PO DAILY 02/17/15 Amlodipine Besylate 5 mg PO DAILY 03/22/23 Cyclobenzaprine [Flexeril] 10 mg PO TID PRN 03/22/23 Ibuprofen [Advil] 200 mg PO PRN PRN 03/22/23 Tirzepatide [Mounjaro] 5 mg SQ SEECOM 03/22/23 Physician Discharge Instructions: Patient underwent anterior cervbical diskectomy and fusion of C4-C5, C5-C6, and C6-C7. She did well postoperatively and was monitored overnight. Stable for discharge home. Dr. Martinez prescribed pain medication and nausea medication through his office. Follow up with PCP within 1 week Follow up with Dr. Martinez as scheduled. Recommended to wear cervical collar for 2 weeks - ok to take off briefly for showering/eating. No need for dressing changes. Ok to remove surgical top dressing after 24hrs from surgery. Surgical glue is on the wound and will fall off on its own Followup: Reggie Martinez MD [ACTIVE - CAN ADMIT] - Time spent managing pt's care (in minutes): 45
== END 2023-03-27 10:50 | disposition home or self-care (01) ==
LOC: OR 05:29 → 2ND 12:05
PROVIDERS: ADMIT Orthopaedic Surgery; ATTEND Orthopaedic Surgery
PROC: 0RG20K0 Fusion of 2 or more Cervical Vertebral Joints with Nonautologous Tissue Substitute, Anterior Approach, Anterior Column, Open Approach (ICD-10-PCS; principal; 2023-03-26 07:00)
PROC: 0RT30ZZ Resection of Cervical Vertebral Disc, Open Approach (ICD-10-PCS; 2023-03-26 07:00)
DX: M47.22 Other spondylosis with radiculopathy, cervical region (principal); I10 Essential (primary) hypertension; E11.9 Type 2 diabetes mellitus without complications; E78.00 Pure hypercholesterolemia, unspecified; E66.01 Morbid (severe) obesity due to excess calories
CPT/HCPCS: 22551 ×2; 22552 ×3; 22853 ×4; 20930 ×2; 85025 ×2; 80048 ×2; 36415 ×3; 83735; 84100; 82947 ×5; 81003; 97161; 22846 ×2; J1815 ×3; J0360; J2704 ×8; J2370; J2001; J2250; J3010 ×2; J1100; J2270; J1170 ×2; J2405 ×2; J7030 ×2; J0690 ×3; G0378 ×3; 76000; J1030